=== PATIENT | male | born 1960 | race Caucasian/White ===

== ENCOUNTER 2017-06-11 08:17 | Emergency (ER) | payer BC ==
[~2017-06-11] VITALS: Ht 185.4 cm; Wt 125.0 kg
[~2017-06-11 08:17] MED LIST: BACT2OIN TOP; CLEO300C2 PO; SULF1TAB47 PO
[2017-06-11 08:25] VITALS: BP 144/88; PULSE 88; RESP 19; TEMP 98.8; O2SAT 99
[2017-06-11] MEDS ORDERED: LISI-519 PO (09:29)
[2017-06-11] MEDS ORDERED: ACYC800T PO (10:04)
[2017-06-11] MEDS ORDERED: BACT800T5 PO (10:04)
--- NOTE | 2017-06-11 10:10 | PD ---
HPI Chief Complaint: Facial Pain or Swelling Time Seen by Provider: 09:47 Travel History International Travel<30 days: No Contact w/Intl Traveler<30days: No Traveled to known affect area: No History of Present Illness HPI 57-year-old male with history of hypertension presents to the emergency room for evaluation of left-sided facial pain, redness, swelling for the past week. Patient states it started off as a small pimple-like area around his left mandaeism region and has been spreading down his face and into his forehead since then. He has associated swollen glands that are painful. He denies prodromal symptoms, fever, chills, nausea, vomiting, blurred vision, eye pain, or drainage. States pain is burning in nature and only occurs when he touches the skin. No significant aching. No itching. He has history of MRSA. He did not get a shingles vaccination this year. PFSH Past Medical History Cardiovascular Problems: Yes (HTN) Diminished Hearing: No Hypertension: Yes Tetanus Vaccination: > 5 Years Past Surgical History Surgical History: No Previous Surgery Social History Alcohol Use: No Tobacco Use: No Substance Use: No Allergies-Medications (Allergen,Severity, Reaction): Coded Allergies: No Known Allergies (Unverified Adverse Reaction, Unknown, 06/11/17) Reported Meds & Prescriptions Reported Meds & Active Scripts Active Bactrim DS (Sulfamethoxazole-Trimethoprim) 800-160 Mg Tab 1 Tab PO BID Acyclovir 800 Mg Tab 800 Mg PO 5 TIMES A DAY 7 Days Reported Lisinopril 5 Mg Tab 5 Mg PO DAILY Review of Systems Except as stated in HPI: all other systems reviewed are Neg Physical Exam Narrative GENERAL: Well-nourished, well-developed male in no acute distress. Afebrile. Ambulatory. SKIN: Focused skin assessment warm/dry. Several erythematous maculopapular lesions and vesicles on an indurated base throughout the left side of the face that is tender to palpation. There is associated tender preauricular lymphadenopathy. HEAD: Normocephalic. EYES: PERRL, EOMI, no discharge or injection. No scleral icterus. Fluorescein staining reveals no corneal abrasion, ulceration, or foreign body. NECK: Supple, trachea midline. No JVD or lymphadenopathy. CARDIOVASCULAR: Regular rate and rhythm without murmurs, gallops, or rubs. RESPIRATORY: Breath sounds equal bilaterally. No accessory muscle use. NEUROLOGICAL: Awake and alert. Cranial nerves II through XII intact. Motor and sensory grossly within normal limits. Five out of 5 muscle strength in all muscle groups. Normal speech. Data Data Last Documented VS Vital Signs Date Time Temp Pulse Resp B/P (MAP) Pulse Ox O2 Delivery O2 Flow Rate FiO2 06/11/17 08:25 98.8 88 19 144/88 (106) 99 Orders Orders Ed Discharge Order (06/11/17 10:11) [facility] Medical Decision Making Medical Screen Exam Complete: Yes Emergency Medical Condition: Yes Medical Record Reviewed: Yes Differential Diagnosis Abscess, cellulitis, shingles, contact dermatitis Narrative Course 57-year-old male with history of hypertension presents to the emergency room for evaluation of left-sided facial pain and rash that started 1 week ago. It has been spreading since then. Physical exam reveals several erythematous maculopapular lesions and vesicles on an indurated base throughout the left side of the face that is tender to palpation. There is associated tender preauricular lymphadenopathy. Fluorescein staining reveals no eye involvement. Consistent with shingles but given history of MRSA will be treated empirically for cellulitis in case of secondary infection. Patient discharged with prescriptions for Bactrim and acyclovir. Told to follow-up with a primary care physician or return for worsening symptoms. He understands and agrees to plan. Diagnosis Primary Impression: Shingles rash Qualified Codes: B02.9 - Zoster without complications Referrals: Primary Care Physician Departure Forms: Tests/Procedures, Work Release Enter return to work date: Jun 12, 2017 Additional Instructions: Rest and drink plenty of fluids. Take Bactrim as directed, until gone. Take acyclovir as directed, until gone. Follow up with a primary care physician. Return to emergency room for worsening symptoms, as discussed. Med/Other Pt SpecificInfo: Prescription(s) given Scripts Sulfamethoxazole-Trimethoprim (Bactrim DS) 800-160 Mg Tab 1 TAB PO BID for Infection, #20 TAB 0 Refills Prov: Riana Edmondson MD 06/11/17 Acyclovir (Acyclovir) 800 Mg Tab 800 MG PO 5 TIMES A DAY for Mgmt Viral Infection for 7 Days, TAB 0 Refills Prov: Riana Edmondson MD 06/11/17 Disposition: 01 DISCHARGE HOME Condition: Stable Merced Gaxiola Jun 11, 2017 10:10
== END 2017-06-11 10:31 | disposition home or self-care (01) ==
LOC: NEPK 08:17
DX: B02.9 Zoster without complications (principal); I10 Essential (primary) hypertension
CPT/HCPCS: 99283